=== PATIENT | female | born 1975 | race Caucasian/White ===

== ENCOUNTER 2023-11-27 00:14 | Emergency (ER) | payer OTHER ==
[~2023-11-27] VITALS: Ht 165.1 cm; Wt 65.0 kg
[2023-11-27 00:25] VITALS: O2SAT 100
[2023-11-27] MEDS ORDERED: HYDROCODONE/ACETAMINOPHEN 5/325MG TABLET PO ONE (00:45)
[2023-11-27] MEDS ORDERED: IBUP-2029 MT (02:04)
[2023-11-27] MEDS: HYDROCODONE/ACETAMINOPHEN 5/325MG TABLET PO NR (02:51)
[2023-11-27 03:50] VITALS: BP 155/77; PULSE 102; RESP 18; TEMP 98.7
== END 2023-11-27 02:47 | disposition home or self-care (01) ==
LOC: ER 00:14
DX: M25.511 Pain in right shoulder (principal); Y04.0XXA Assault by unarmed brawl or fight, initial encounter; Y93.89 Activity, other specified; Y92.89 Other specified places as the place of occurrence of the external cause; Y99.8 Other external cause status
CPT/HCPCS: 73030; 99283